=== PATIENT | female | born 1980 | race Caucasian/White ===

== ENCOUNTER → 2017-08-01 08:17 | Outpatient (CLI) | payer OTHER, SELFPAY ==
--- NOTE | 2017-08-01 08:22 | HPBI_ITS ---
MAMMOGRAPHY - BILATERAL DIAGNOSTIC REASON FOR EXAM: Female, 36 years old. Left breast pain and swelling for 2 months. PERTINENT HISTORY: Non-contributory. 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 TECHNIQUE: Digital bilateral breast dave (3D mammographic acquisition) in the CC and MLO projections. 2-D mediolateral oblique (MLO) and craniocaudad (CC) views of both breasts were obtained. CAD: Full Field Digital Mammography with Computer Added Detection was performed. COMPARISON: Comparison is made with prior examination dated June 16, 2015. FINDINGS: Breast Composition: The breasts are heterogeneously dense, which may obscure small masses. The previously seen calcified nodule in the retroareolar region of the left breast as been excised. The previously seen 1.7 cm nodule in the superior lateral portion of the left breast as been removed as well. No new lesions are seen. No other significant abnormalities are identified. HPBI/DIAG MAMM W/CAD, BILAT IMPRESSION: Negative diagnostic mammogram. Yearly followup mammogram recommended. (A) ASSESSMENT CATEGORY: BIRADS Category 2: Benign. A letter regarding these results will be sent to the patient by the facility within 30 days. Approximately 10% of breast cancers are not detected by mammography. A normal mammogram should not delay biopsy of a clinically suspicious abnormality. Electronically Signed: Santo Iyer MD at 9:51 EST Tel [phone], Service support ,
--- NOTE | 2017-08-01 09:22 | US_ITS ---
STUDY: ULTRASOUND BREAST - LEFT REASON FOR EXAM: Female, 36 years old. Pain in the left breast. Prior resection of bilateral phyllodes tumor. TECHNIQUE: Axial and longitudinal images of the LEFT breast were performed with a high resolution ultrasound transducer. COMPARISON: Comparison is made with prior mammogram done earlier today. Comparison is also made with prior ultrasound of the left breast. FINDINGS: LEFT Breast: Multiple small cysts are seen at the 3:00 position of the breast at 2 cm from the nipple. The largest measures 9 mm x 10 mm x 5 mm. US/Breast Limited Unilateral IMPRESSION: 3 small cysts at the 3:00 position of the breast at 2 cm from the nipple. ASSESSMENT CATEGORY: BIRADS Category 2: Benign. A letter regarding these results will be sent to the patient by the facility within 30 days. Electronically Signed: Santo Iyer MD at 10:27 EST Tel [phone], Service support ,
== END ==
PROVIDERS: Visit Provider Obstetrics & Gynecology
DX: N64.4 Mastodynia (principal)
CPT/HCPCS: 76642; 77062; 77066; G0279